=== PATIENT | female | born 1950 | race Caucasian/White ===

== ENCOUNTER → 2017-01-12 | Outpatient (CLI) | payer MEDICAID ==
[~2017-01-12] MED LIST: ASPIRIN325 M1 PO; CELEXA20 MG PO; CIPRO 500MG TA500 MG PO; CLARITIN 10MG T10 MG PO; DETROL 1MG TAB1 MG PO; FLAGYL 500MG.500 MG PO; LEVOTHROID0.05 MG PO; LISINOPRIL 20MG20 MG PO; LORTAB 5/3251 TAB PO; MELOXICAM15 MG PO; NORCO 325 MG-51 TAB PO; PRILOSEC20 MG PO; SIMVASTATIN20 MG PO; ZOFRAN ODT4 MG PO
[2017-01-12 11:55] LABS: LYMPH # 2.1 K/mm3 (0.7-4.5); LYMPH % 24.6 % (10-50.0)
[2017-01-12 12:14] LABS: HEMOGLOBIN 12.9 g/dL (12.2-16.2)
[2017-01-12 14:43] LABS: BUN 27 mg/dL (7-18)
[2017-01-12 15:20] LABS: GFR (ESTIMATED) 41 ML/MIN (59-)
== END ==
LOC: RT 11:43 → LAB 11:43
PROVIDERS: Orthopaedic Surgery
DX: G56.01 Carpal tunnel syndrome, right upper limb (principal); Z01.818 Encounter for other preprocedural examination